=== PATIENT | female | born 1995 | race Caucasian/White ===

== ENCOUNTER 2018-06-09 14:20 | Outpatient (CLI) | payer BC ==
[2018-06-09 16:03] LABS: HB2 TOTAL 14.2 g/dL; HEMOGLOBIN A1C 0.43 g/dL; HEMOGLOBIN A1C % 4.9 % (4.6-6.2)
[2018-06-09 16:20] LABS: THYROID STIMULATING HORMONE 2.48 uIU/mL (0.34-5.60)
[2018-06-09 16:22] LABS: FREE T4 (FREE THYROXINE) 0.8 ng/dL (0.58-1.64)
== END 2018-06-09 14:21 | disposition home or self-care (01) ==
LOC: LAB 14:20
PROVIDERS: ATTEND Obstetrics & Gynecology
DX: N97.8 Female infertility of other origin (principal)
CPT/HCPCS: 36415; 83036; 84439; 84443; 84481

== ENCOUNTER 2018-06-16 08:44 | Outpatient (CLI) | payer BC | END 2018-06-16 08:45 | disposition home or self-care (01) | LOC: LAB 08:44 | PROVIDERS: ATTEND Obstetrics & Gynecology | DX: N97.8 Female infertility of other origin (principal) | CPT/HCPCS: 36415; 82947 ==